=== PATIENT | female | born 1995 ===

== ENCOUNTER 2016-09-23 03:01 | Emergency (ER) | payer OTHER ==
[2016-09-23] MEDS ORDERED: NS 0.9% 1000 ML* 1,000 ML IV ONE (03:49)
[2016-09-23] MEDS ORDERED: Ondansetron INJ* 2 MG/ML VIAL IV ONE (03:49)
[2016-09-23] MEDS ORDERED: Ondansetron INJ* 2 MG/ML VIAL ONE (03:51)
[2016-09-23 04:07] LABS: Hematocrit 39 % (35-47); Hemoglobin 13.2 g/dl (12.0-16.0); Mean Corpuscular HGB Conc 34 g/dl (31-36); Mean Corpuscular Hemoglobin 29 pg (27-31); Mean Corpuscular Volume 88 fL (80-97); Mean Platelet Volume 8 um3 (7.4-10.4); Red Cell Distribution Width 13 % (10.5-15); White Blood Count 7.6 10^3/ul (3.5-10.8)
--- NOTE | 2016-09-23 04:11 | ED ---
Nancy Giles Janilya, scribed for Lg Georges MD on 09/23/16 at 0403 . Influenza-Like Illness - HPI Summary HPI Summary: A 21 y/o female came in to [facility] presenting w/ a gradual onset of constant flu- like Sx for the past 3 days. However, her Sx have progressively worsened, which prompted her visit today. Pt reports lightheadedness, n/v/d, temp of 99 F today and yesterday. Pt used Advil with little relief. - History of Current Complaint Chief Complaint: EDNauseaVomitDiarrh Hx Obtained From: Patient Onset/Duration: Gradual Onset, Lasting Days, Still Present Severity: Moderate Associated Signs & Symptoms: Vomiting, Diarrhea - Allergy/Home Medications Allergies/Adverse Reactions: Allergies Allergy/AdvReac Type Severity Reaction Status Date / Time No Known Allergies Allergy Verified 09/23/16 03:50 PMH/Surg Hx/FS Hx/Imm Hx Previously Healthy: Yes Sensory History: Denies: Hx Cataracts - Family History Known Family History: Positive: Cardiac Disease, Hypertension Negative: Diabetes - Social History Occupation: Student Lives: Alone Substance Use Type: Reports: None Review of Systems Positive: Vomiting, Diarrhea, Nausea Neurological: Other - lightheadedness All Other Systems Reviewed And Are Negative: Yes Physical Exam Triage Information Reviewed: Yes Vital Signs On Initial Exam: Initial Vitals Temp Pulse Resp BP Pulse Ox 98.5 F 97 16 104/65 100 09/23/16 03:47 09/23/16 03:47 09/23/16 03:47 09/23/16 03:47 09/23/16 03:47 Vital Signs Reviewed: Yes Appearance: Positive: Well-Appearing, No Pain Distress Skin: Positive: Warm Eyes: Positive: ALICIA Neck: Positive: Supple Respiratory/Lung Sounds: Positive: Clear to Auscultation, Breath Sounds Present Cardiovascular: Positive: Normal Abdomen Description: Positive: Nontender, Soft Bowel Sounds: Positive: Present Musculoskeletal: Positive: Strength/ROM Intact Neurological: Positive: Sensory/Motor Intact, Normal Gait Psychiatric: Positive: Normal Diagnostics - Vital Signs Vital Signs Temp Pulse Resp BP Pulse Ox 09/23/16 03:47 98.5 F 97 16 104/65 100 - Laboratory Result Diagrams: 09/23/16 04:00 09/23/16 04:00 Lab Statement: Any lab studies that have been ordered have been reviewed, and results considered in the medical decision making process. Re-Evaluation - Re-Evaluation First Eval Change: Improved - results d/w pt Flu Symptom Course/Dx - Diagnoses Provider Diagnoses: UTI (urinary tract infection) Discharge - Discharge Plan Condition: Improved Disposition: HOME Prescriptions: Sulfamethox/Trimethoprim DS* [Bactrim DS 800/160 TAB*] 1 tab PO BID #14 tab Patient Education Materials: Urinary Tract Infection in Women (ED) Referrals: [facility] FATMATA Oliva [Primary Care Provider] - Additional Instructions: Follow up with your primary care provider. The documentation as recorded by the Nancy veliz Janilya accurately reflects the service I personally performed and the decisions made by , Lg Georges MD.
[2016-09-23 04:26] LABS: Urine Bacteria 1+ (Absent); Urine Bilirubin Negative (Negative); Urine Glucose Negative (Negative); Urine Nitrite Negative (Negative)
[2016-09-23 04:30] LABS: ALT 26 U/L (7-52); AST 26 U/L (13-39); Albumin 3.7 g/dL (3.2-5.2); Alkaline Phosphatase 46 U/L (34-104); Anion Gap 7 mmol/L (2-11); BUN/Creatinine Ratio 12.5 (8-20); Blood Urea Nitrogen 8 mg/dL (6-24); CO2 Carbon Dioxide 26 mmol/L (22-32); Calcium 9.1 mg/dL (8.6-10.3); Chloride 103 mmol/L (101-111); EGFR African American 150.6 (>60); EGFR Non-African American 117.1 (>60); Globulin 3.4 g/dL (2-4); Glucose 122 mg/dL (70-100); Magnesium 1.8 mg/dL (1.9-2.7); Potassium 3.9 mmol/L (3.5-5.0); Sodium 136 mmol/L (133-145); Total Protein 7.1 g/dL (6.4-8.9)
[2016-09-23] MEDS ORDERED: Sulfamethox/Trimethoprim DS 800/160* TAB PO ONE (04:44)
[2016-09-23 05:11] VITALS: BP 110/64
== END 2016-09-23 05:08 | disposition home or self-care (01) ==
LOC: ED 03:01
DX: N39.0 Urinary tract infection, site not specified (principal); R11.10 Vomiting, unspecified; R19.7 Diarrhea, unspecified
CPT/HCPCS: 36415; 80053; 81003; 81015; 83735; 84702; 85025; 87086; 96374; 99282; A9270-GY; J2405